=== PATIENT | female | born 1945 | race Caucasian/White ===

== ENCOUNTER 2017-03-21 22:17 | Emergency (ER) | payer MEDICARE ==
[2017-03-21] MEDS ORDERED: TOPICAL SKIN ADHESIVE 1 EACH AMP TOPICAL ONE (22:32)
--- NOTE | 2017-03-21 22:34 | ED ---
General Adult HPI - General Chief complaint: Fall Stated complaint: fall Time Seen by Provider: 03/21/17 22:28 Source: patient, family, RN notes reviewed Mode of arrival: ambulatory Limitations: no limitations - History of Present Illness Initial comments: Patient is a pleasant 71-year-old female presenting to the emergency department for forehead laceration. Incident occurred just prior to arrival. Patient was walking when she tripped and fell. Patient did strike the left side of her head. No loss of consciousness. Patient does not take blood thinners. No confusion. No weakness. No other area of injury. No neck or back pain. No chest pain or dyspnea or abdominal pain. - Related Data Allergies Allergy/AdvReac Type Severity Reaction Status Date / Time No Known Allergies Allergy Verified 03/21/17 22:26 Review of Systems ROS Statement: Those systems with pertinent positive or pertinent negative responses have been documented in the HPI. ROS Other: All systems not noted in ROS Statement are negative. Constitutional: Denies: fever Eyes: Denies: eye pain ENT: Denies: ear pain Respiratory: Denies: cough Cardiovascular: Denies: chest pain Endocrine: Denies: fatigue Gastrointestinal: Denies: abdominal pain Genitourinary: Denies: urgency Musculoskeletal: Denies: back pain Skin: Denies: rash Neurological: Denies: weakness, confusion, abnormal gait Past Medical History Past Medical History: No Reported History History of Any Multi-Drug Resistant Organisms: None Reported Past Surgical History: Tonsillectomy Additional Past Surgical History / Comment(s): tubal Past Psychological History: No Psychological Hx Reported Smoking Status: Never smoker Past Alcohol Use History: None Reported Past Drug Use History: None Reported General Exam Limitations: no limitations General appearance: alert, in no apparent distress Head exam: Present: other (Soft tissue swelling laceration above the left eyebrow) Eye exam: Present: normal appearance, PERRL, EOMI. Absent: nystagmus ENT exam: Present: normal oropharynx Neck exam: Present: normal inspection. Absent: tenderness Respiratory exam: Present: normal lung sounds bilaterally Cardiovascular Exam: Present: regular rate, normal rhythm GI/Abdominal exam: Present: soft. Absent: tenderness Extremities exam: Present: normal inspection, full ROM. Absent: tenderness Back exam: Present: normal inspection. Absent: tenderness Neurological exam: Present: alert, CN II-XII intact. Absent: motor sensory deficit Expanded Cranial nerves: EOM's Intact: Normal Sensory exam: Upper Extremity Light Touch: Normal, Lower Extremity Light Touch: Normal Motor strength exam: RUE: 5, LUE: 5, RLE: 5, LLE: 5 Eye Response: (4) open spontaneously Motor Response: (6) obeys commands Verbal Response: (5) oriented Psychiatric exam: Present: normal affect, normal mood Skin exam: Present: other (Contusion and laceration above the left eyebrow) Course Vital Signs 03/21/17 22:22 Temperature 97.3 F L Pulse Rate 79 Respiratory 18 Rate Blood Pressure 159/72 O2 Sat by Pulse 94 L Oximetry Procedures - Laceration Laceration #1 Consent Obtained: verbal consent Time Out Performed: Yes Indication: laceration Site: face Size (cm): 1 Description: linear Depth: simple, single layer Pre-repair: wound explored (Cleansed with saline and gauze) Type of Sutures: other (Closed with Dermabond) Patient Tolerated Procedure: well, no complications Disposition Clinical Impression: Fall, Forehead laceration Disposition: HOME SELF-CARE Condition: Stable Instructions: Skin Adhesive Care (ED), Head Injury (ED) Additional Instructions: Please follow-up with primary care physician in the next couple days for recheck. Return for increased pain, weakness, visual change, confusion, coordination problems, worsening symptoms or other concerns. Referrals: Nonstaff,Physician [Primary Care Provider] - 1-2 days Sierra Self MD [STAFF PHYSICIAN] - 1-2 days Time of Disposition: 22:42
[2017-03-21] MEDS ORDERED: DIPH,PERTUS(ACELL)TETVAC-LF 0.5 ML VIAL IM ONE (23:16)
[2017-03-21 23:46] VITALS: BP 160/74; PULSE 70; RESP 16; TEMP 97.4
== END 2017-03-21 23:46 | disposition home or self-care (01) ==
LOC: EC 22:17
DX: S01.81XA Laceration without foreign body of other part of head, initial encounter (principal); W01.198A Fall on same level from slipping, tripping and stumbling with subsequent striking against other object, initial encounter; Y92.480 Sidewalk as the place of occurrence of the external cause; Y93.01 Activity, walking, marching and hiking
CPT/HCPCS: 12011; 90471; 90715; 99283